=== PATIENT | female | born 1935 | race African-American/Black ===

== ENCOUNTER 2017-05-05 18:06 | Emergency (ER) | payer MEDICARE, OTHER ==
[~2017-05-05] VITALS: Ht 172.7 cm; Wt 81.6 kg
[~2017-05-05 18:06] MED LIST: AMLODIPINE BESY10 MG; ATORVASTATIN CA20 MG; UNOBMED
[2017-05-05 18:38] VITALS: BP 154/90
[2017-05-05] MEDS ORDERED: Acetaminophen 500mg (ES) tab PO ONE (18:45)
[2017-05-05] MEDS ORDERED: TYLENOL EXTRA500 MG ORAL (19:32)
[2017-05-05 20:00] VITALS: BP 151/77
--- NOTE | 2017-05-05 20:09 | Emergency Room Report ---
History of Present Illness General Chief Complaint: General Complaint Source: Patient Present Illness HPI 82-year-old female presents to ED for evaluation. Brought in by EMS. Patient states she's having right knee pain on and off for some time now but worse today. Unable to stand up. Denies any recent fall or injury. Pain is throbbing, 7/10, nonradiating. Denies any other injuries. No other aggravating relieving factors. Denies any other associated symptoms Allergies: Coded Allergies: No Known Allergies (Unverified , 01/18/14) Patient History Past Medical History: HTN Past Surgical History: none Pertinent Family History: none Social History: Denies: smoking, alcohol use, drug use Last Menstrual Period: Post Now: No Immunizations: UTD Reviewed Nursing Documentation: PMH: Agreed, PSxH: Agreed Nursing Documentation-PMH Hx Hypertension: Yes Review of Systems All Other Systems: negative except mentioned in HPI Physical Exam Vital Signs Date Time Temp Pulse Resp B/P (MAP) Pulse Ox O2 Delivery O2 Flow Rate FiO2 05/05/17 17:58 98.2 92 18 156/92 99 Room Air 98.2 Sp02 EP Interpretation: reviewed, normal General Appearance: no apparent distress, alert, GCS 15, non-toxic Head: normocephalic Eyes: bilateral eye normal inspection, bilateral eye PERRL ENT: normal ENT inspection Neck: normal inspection Respiratory: normal inspection Cardiovascular #1: normal inspection Gastrointestinal: normal inspection Rectal: deferred Genitourinary: no CVA tenderness Musculoskeletal: normal range of motion, tender - R knee Neurologic: alert, oriented x3, responsive, motor strength/tone normal, sensory intact, speech normal Psychiatric: normal inspection Skin: normal inspection Lymphatic: normal inspection Procedures Splinting Splinting : Consent: Verbal Pre-Made Type: CAMERON wrap - R knee Pre-Proc Neuro Vasc Exam: normal Post-Proc Neuro Vasc Exam: normal Patient Tolerated: Well Complications: None Medical Decision Making Diagnostic Impression: Primary Impression: Knee pain Qualified Codes: M25.561 - Pain in right knee ER Course Hospital Course 82-year-old F presents to ED complaining of R knee pain. no reported trauma Differential diagnoses include: Fracture, dislocation, sprain, contusion Clinical course Patient placed on stretcher. After initial history and physical, I ordered pain medications and Xrays of R knee Xrays prelim read shows no acute fracture/dislocation. narrow joint spacing noted. DJD discussed findings with patient. cameron wrap applied. transportation arragned to take patient home Diagnosis - knee pain Stable and discharged to home with prescription for Tylenol. apply ice, keep elevated. weight bear as tolerated. Followup with PMD. Return to ED if symptoms recur or worsen Other X-Ray Diagnostic Results Other X-Ray Diagnostic Results : X-Ray ordered: R knee # of Views/Limited Vs Complete: 3 View Indication: Pain EP Interpretation: Yes Interpretation: no dislocation, no soft tissue swelling, no fractures Impression: Other - TYRONED Electronically Signed by: Electronically signed by Osbaldo Hartman MD Last Vital Signs Date Time Temp Pulse Resp B/P (MAP) Pulse Ox O2 Delivery O2 Flow Rate FiO2 05/05/17 18:50 98.5 05/05/17 18:38 77 18 154/90 99 Room Air Status: improved Disposition: HOME, SELF-CARE Condition: Stable Scripts Acetaminophen* (TYLENOL EXTRA STRENGTH*) 500 Mg Tablet 500 MG ORAL Q8H Y for Prn Headache/Temp > 101, #30 TAB 0 Refills Prov: OSBALDO HARTMAN M.D. 05/05/17 Patient Instructions: Osteoarthritis OSBALDO HARTMAN M.D. May 05, 2017 20:09
--- NOTE | 2017-05-06 09:11 | Diagnostic Imaging Report ---
Indication: Pain Technique: 3 views of the right knee Comparison: None Findings: There is a suprapatellar effusion. There are degenerative changes of the patellofemoral joint as well as minimal medial compartmental degenerative proliferative changes. No acute fractures. No dislocations. Impression: Joint effusion No acute bony trauma Degenerative changes, as described
== END 2017-05-05 20:00 | disposition home or self-care (01) ==
LOC: EDBD 18:06 → EMR 18:42
DX: M25.561 Pain in right knee (principal); I10 Essential (primary) hypertension; M25.461 Effusion, right knee
CPT/HCPCS: 99283